=== PATIENT | male | born 1975 | race Caucasian/White ===

== ENCOUNTER → 2017-04-25 | Outpatient (CLI) | payer BC ==
--- NOTE | 2017-04-25 12:25 | XR ---
Right hand HISTORY: Pain, lump fourth metatarsophalangeal joint 3 views of the right hand No comparisons Bone mineralization, joint spaces and alignment are maintained. No fracture or dislocation. Mild hype rtrophic change present at the carpometacarpal joint of the first digit. IMPRESSION: Osteoarthritis.
--- NOTE | 2017-04-25 13:36 | XR ---
Fourth digit right hand HISTORY: Lump, mass at anterior right ring finger metacarpophalangeal joint 2 views of the fourth digit of the right hand submitted and correlated to prior abdomen film same meri e. Bone mineralization, joint spaces and alignment are maintained. No fracture or dislocation. Metacarpa l phalangeal joint volar aspect is obscured on the lateral view by superimposed digits. IMPRESSION: No bony abnormality evident. Consider MRI.
== END | disposition home or self-care (01) ==
LOC: RADXRYALE 09:40
PROVIDERS: ATTEND Physician Assistant Medical
DX: M19.041 Primary osteoarthritis, right hand (principal); M79.641 Pain in right hand; R22.31 Localized swelling, mass and lump, right upper limb

== ENCOUNTER → 2023-04-01 | Outpatient (CLI) | payer BC ==
--- NOTE | 2023-04-01 11:35 | FL ---
EXAMINATION TYPE: FL barium swallow DATE OF EXAM: 04/01/2023 COMPARISON: None HISTORY: Dysphagia TECHNIQUE: A double air contrast esophagram study is performed. FINDINGS: Contrast passes through the esophagus without intraluminal or extramural defects. No hesitancy is jason dent. No stenosis at the gastroesophageal junction. There is complete stripping of the esophageal alfredo us in the horizontal drinking position. No reflux could be elicited during the examination. IMPRESSION: 1. No acute abnormality esophagus.
== END | disposition home or self-care (01) ==
LOC: RADUSWWP 09:50
PROVIDERS: ATTEND Otolaryngology
DX: R13.19 Other dysphagia (principal)
CPT/HCPCS: 74220